=== PATIENT | female | born 1990 | race Caucasian/White ===

== ENCOUNTER 2019-06-21 19:39 | Emergency (ER) | payer OTHER ==
[2019-06-21] MEDS ORDERED: metroNIDAZOLE 250 MG TAB ONE (20:17)
[2019-06-21] MEDS ORDERED: Fluconazole 100 MG TAB ONE (20:17)
[2019-06-21 20:27] LABS: Bilirubin Negative (Negative); Blood, Urine Negative (Negative); Clarity Clear (Clear); Glucose, Urine (Dipstick) Negative (Negative); Leukocyte Moderate (Negative); Nitrite Negative (Negative); Protein, Urine (Dipstick) Negative (Neg-Trace); Urobilinogen 0.2 mg/dL (Less than 2)
[2019-06-21 20:29] LABS: Pregnancy Test - Urine (BHCG) Negative (Negative)
[2019-06-21 20:30] LABS: Pregu Control Background? CLEAR/WHITE (CLR/WHITE); Pregu Control Bar Appear? YES (CONTROL BAR); Specific Gravity 1.026 (1.002-1.036)
[2019-06-21 20:45] LABS: Bacteria/HPF 2+ HPF (None Seen); WBC/HPF Greater than 50 HPF (0-3)
== END 2019-06-21 20:54 | disposition home or self-care (01) ==
LOC: MADERS 19:39
DX: N76.0 Acute vaginitis (principal); B96.89 Other specified bacterial agents as the cause of diseases classified elsewhere; B37.3 Candidiasis of vulva and vagina
CPT/HCPCS: 81003; 81015; 81025; 99283

== ENCOUNTER 2019-09-22 12:18 | Emergency (ER) | payer OTHER | END 2019-09-22 13:15 | disposition home or self-care (01) | LOC: MADERS 12:18 | DX: K04.7 Periapical abscess without sinus (principal); L03.211 Cellulitis of face | CPT/HCPCS: 99282 ==

== ENCOUNTER 2020-01-31 20:19 | Emergency (ER) | payer OTHER ==
[2020-01-31] MEDS ORDERED: AMOXicillin 250 MG CAP ONE (20:55)
[2020-01-31] MEDS ORDERED: Ibuprofen 400 MG TAB ONE (20:55)
== END 2020-01-31 21:00 | disposition home or self-care (01) ==
LOC: MADERS 20:19
DX: K04.7 Periapical abscess without sinus (principal)
CPT/HCPCS: 99282